=== PATIENT | male | born 1970 | race Caucasian/White ===

== ENCOUNTER 2018-03-15 08:06 | Observation (INO) | payer OTHER ==
--- NOTE | 2018-03-15 08:00 | PDANEPAE ---
<DerianGucci - Last Filed: 03/15/18 09:10> ANE Review of Systems Review of Systems: ANE Patient History - Allergies Allergies/Adverse Reactions: No Known Allergies Allergy (Verified 02/23/18 10:21) - Home Medications Home Medications: NK [No Known Home Meds] 10/18/16 [Last Taken Unknown] - Anes Hx Anes Hx: no prior problems ANE Physical Exam - Airway Neck exam: FROM Mallampati Score: Class 1 Mouth exam: normal dental/mouth exam - Pulmonary Pulmonary: no respiratory distress - Cardiovascular Cardiovascular: regular rate and rhythym - ASA Status ASA Status: I ANE Anesthesia Plan Anesthesia Plan: general endotracheal anesthesia <Erik Velasquez - Last Filed: 03/16/18 10:28> ANE History of Present Illness L suprahyoid lymphadenectomy ANE Past Medical History - Cardiovascular History Hx Hypertension: No Hx Arrhythmias: No Hx Chest Pain: No Hx Coronary Artery / Peripheral Vascular Disease: No Hx CHF / Valvular Disease: No Hx Palpitations: No - Pulmonary History Hx COPD: No Hx Asthma/Reactive Airway Disease: No Hx Recent Upper Respiratory Infection: No Hx Oxygen in Use at Home: No Hx Sleep Apnea: No Sleep Apnea Screening Result - Last Documented: Negative - Neurologic History Hx Cerebrovascular Accident: No Hx Seizures: No Hx Dementia: No Neurologic History Comment: migraines - Endocrine History Hx Diabetes: No - Renal History Hx Renal Disorders: No - Liver History Hx Hepatic Disorders: No - Neurological & Psychiatric Hx Hx Neurological and Psychiatric Disorders: No - Cancer History Hx Cancer: No - Congenital Disorder History Hx Congenital Disorders: No - GI History Hx Gastrointestinal Disorders: No - Other Health History Other Health History: L neck mass increasing in size over past 10 yrs. Brachial cleft cyst. wears contacts - Chronic Pain History Chronic Pain: No - Surgical History Prior Surgeries: na ANE Review of Systems Review of Systems: ANE Patient History - Home Medications Home medications: home medication list seen and reviewed - Smoking Hx Smoking Status: Current some day smoker - Family Anes Hx Family Hx Anesthesia Complications: none ANE Labs/Vital Signs - Vital Signs Vital Signs: reviewed preoperatively; see RN documention for details Height: 193.04 cm Weight: 97.522 kg ANE Physical Exam - ASA Status ASA Status: II ANE Anesthesia Plan Anesthesia Plan: general endotracheal anesthesia (This case was reassigned. I did not care for this pt.)
--- NOTE | 2018-03-15 08:03 | PDHPUP ---
History & Physical Update H&P update statement: This history and physical update is based on an assessment of the patient which was completed after admission or registration (within 24 hours), but prior to the surgery/procedure. H&P update: H&P reviewed & patient examined, no change in patient's condition since H&P completed
[2018-03-15] MEDS ORDERED: BACITRACIN ZINC 14.2 GM OINTTUBE TP ONE (08:41)
[2018-03-15] MEDS ORDERED: LIDO/EPI 1% **for epidural** 30 ML SDV ONE (08:41)
[2018-03-15] MEDS ORDERED: ceFAZolin 2 GM/DEXTROSE 100 ML IV ONE ×2 (08:59→09:22)
[2018-03-15] MEDS ORDERED: PROPOFOL 200 MG/20 ML VIAL ONE ×2 (08:59)
[2018-03-15] MEDS ORDERED: DEXAMETHASONE 10 MG/ML VIAL IVP ONE (08:59)
[2018-03-15] MEDS ORDERED: fentaNYL 100 MCG/2 ML INJ ONE ×2 (09:00)
[2018-03-15] MEDS ORDERED: MIDAZOLAM 2 MG/2 ML VIAL ONE (09:01)
[2018-03-15] MEDS ORDERED: LIDOCAINE 2% 2 ML INJ ONE ×2 (09:02)
[2018-03-15] MEDS ORDERED: ROCURONIUM 50 MG/5 ML VIAL ONE (09:06)
[2018-03-15] MEDS ORDERED: SUCCINYLCHOLINE CHLORIDE 200 MG/10 ML SYR IVP ONE (09:07)
[2018-03-15] MEDS ORDERED: ONDANSETRON 4 MG/2 ML VIAL ONE (09:07)
[2018-03-15] MEDS ORDERED: DEXAMETHASONE 4 MG/ML VIAL ONE (09:07)
[2018-03-15] MEDS ORDERED: KETOROLAC 30 MG/1 ML SDV ONE (09:07)
[2018-03-15] MEDS ORDERED: MIDAZOLAM 2 MG/2 ML VIAL IVP ONE (09:11)
--- NOTE | 2018-03-15 09:11 | POSTANESTH ---
Post Anesthetic Evaluation Cardiovascular Status: Normal, Stable Respiratory Status: Normal, Stable Level of Consciousness/Mental Status: Can Participate in Eval, Mildly Sleepy, Arousable Pain Control: Adequate, Prn Tx Ordered Nausea/Vomiting Control: Adequate, Prn Tx Ordered Complications Possibly Related to Anesthesia: None Noted
[2018-03-15] MEDS ORDERED: fentaNYL 100 MCG/2 ML INJ IVP PRN (10:32)
[2018-03-15] MEDS ORDERED: ONDANSETRON 4 MG/2 ML VIAL IVP PRN (10:32)
[2018-03-15] MEDS ORDERED: HYDROCODONE/APAP 5/325 TAB PO PRN (10:32)
[2018-03-15] MEDS ORDERED: oxyCODONE IR 5 MG TAB PO PRN (10:32)
[2018-03-15] MEDS ORDERED: NALOXONE HCL 0.4 MG/ML INJ IVP PRN (10:32)
[2018-03-15] MEDS ORDERED: ALBUTEROL 3 ML DEYVIAL IH PRN (10:32)
[2018-03-15] MEDS ORDERED: ACETAMINOPHEN 500 MG TAB PO PRN (10:32)
[2018-03-15] MEDS ORDERED: HYDROmorphONE/DILAUDID 2 MG/ML INJ IVP PRN (10:32)
[2018-03-15] MEDS ORDERED: METOCLOPRAMIDE 10 MG/2 ML VIAL IVP PRN (10:32)
[2018-03-15] MEDS ORDERED: PROMETHAZINE HCL 25 MG/ML INJ IVP PRN (10:32)
[2018-03-15] MEDS ORDERED: LR 500 ML IV PRN (10:32)
--- NOTE | 2018-03-15 10:54 | POSTOPPROG ---
Post Op Note Date of Operation: 03/15/18 Surgeon: Misael Bynum Data Sciences Director: Denae Anesthesia: GET(General Endotracheal) Pre-op Diagnosis: left neck mass Post-op Diagnosis: same Procedure: excision left neck mass, c/w branchial cleft cyst on frozen section Findings: left neck mass Inf/Abcess present in the surg proc area at time of surgery?: No Depth: Deep Incisional (Fascial) EBL: Minimal Total fluids administered: 600 Complications: none Drains: Hemovac, Nephrostomy Specimen(s): left neck mass
[2018-03-15] MEDS ORDERED: D5W LR 1,000 ML IV SCH (11:00)
--- NOTE | 2018-03-15 17:09 | SOAPPROG ---
SOAP Progress Note Assessment/Plan: Assessment: patient with mod discomfort AVSS neck flat, dressing dry and intact min maryan drainage CN 7,11,12 ntact Stable post op. Pt to have drain d/emeka, neck redressed and d/emeka home in am tomorrow Plan: 03/15/18 17:07 patient with Objective: Vital Signs Temp Pulse Resp BP Pulse Ox 36.9 C 68 12 109/77 95 03/15/18 16:17 03/15/18 16:17 03/15/18 16:17 03/15/18 16:17 03/15/18 13:40 03/14/18 03/15/18 03/16/18 05:59 05:59 05:59 Intake Total 850 Output Total 440 Balance 410 ICD10 Worksheet Patient Problems: Problems Problem Status Onset Neck mass Acute - ICD10 Problem Qualifiers (1) Neck mass
[2018-03-15] MEDS: ACETAMINOPHEN 325 MG TAB PO PRN ×2 (18:37→23:04)
[2018-03-16 09:28] VITALS: BP 123/84
--- NOTE | 2018-04-03 10:25 | GOP ---
DATE OF OPERATION: 03/15/2018 SURGEON: Francisco Bynum MD MACHINE II ENGRAVER: David Philippe MD. ANESTHESIA: General endotracheal. PREOPERATIVE DIAGNOSIS: Left neck mass consistent with branchial cleft cyst. POSTOPERATIVE DIAGNOSIS: Left neck mass, confirmed as branchial cleft cyst on frozen section. PROCEDURE PERFORMED: Planned and performed: Excision of left neck mass via supra omohyoid neck diss ection. FINDINGS: Left neck mass. Frozen section evaluation consistent with branchial cleft cyst. ESTIMATED BLOOD LOSS: 30 mL. DESCRIPTION OF PROCEDURE: Patient was placed on the operating table in the supine position. After i nduction of adequate general endotracheal anesthesia, a shoulder roll was placed beneath the patient' s shoulders to extend the neck. Sterile prep and drape of the anterior neck were performed and the p atient's head was turned slightly to the left. An incision was then created overlying the large leve l 2 left neck mass approximately 3 fingerbreadths inferior to the mandible. The incision extended fo r approximately 5 cm in a naturally occurring skin crease. The incision was then carried down throug h the subcutaneous tissues and through the platysma muscle. On the deep side of the platysma muscle, the dissection proceeded cephalad in a plane immediately overlying the large neck mass. As the mass was further dissected, the hypoglossal nerve was encountered as it passed deep to the digastric musc le overlying the carotid artery. As dissection proceeded further posteriorly, the spinal accessory n erve was identified. This was then dissected from proximal to distal maintaining its integrity. As dissection further proceeded around the mass, the carotid artery and jugular vein were identified and were mobilized. Once circumferential dissection of the mass had been completed, the mass was handed off. At this point, wide exposure of the neck had been obtained. Again, it was noted that the hypo glossal nerve, marginal mandibular nerve, spinal accessory nerve, carotid, and jugular vein had been dissected free from the mass and their integrity had been maintained. At this point, irrigation of t he wound was performed. Hemostasis was obtained. A few small bleeders were treated with the bipolar electrocautery. At this point, a Zaheer-Randall drain was placed deeply into the wound and brought o ut just inferior to the neck incision. This was sutured into place with a single 2-0 silk suture. T he skin was closed with a deep closure of 4-0 Vicryl sutures. The skin was then closed with interrup tamy 5-0 Prolene sutures. At this point, a sterile pressure dressing was applied. The patient was th en awakened, transferred to the post anesthesia recovery in stable condition. ANESTHESIA: General endotracheal. FLUID REPLACEMENT: 600 mL. COMPLICATIONS: None. /[id number]/MODL
== END 2018-03-16 09:49 | disposition home or self-care (01) ==
LOC: F3E 08:06
PROVIDERS: ADMIT Otolaryngology; ATTEND Otolaryngology
PROC: 0JB50ZX Excision of Left Neck Subcutaneous Tissue and Fascia, Open Approach, Diagnostic (ICD-10-PCS; principal; 2018-03-15 09:00)
DX: Q18.0 Sinus, fistula and cyst of branchial cleft (principal); K21.9 Gastro-esophageal reflux disease without esophagitis; G43.909 Migraine, unspecified, not intractable, without status migrainosus
CPT/HCPCS: 42815; G0378; J0330; J0690; J1100; J1885; J2250; J2405; J2704; J3010